=== PATIENT | male | born 1945 | race Caucasian/White ===

== ENCOUNTER → 2019-12-22 13:38 | Outpatient (CLI) | payer MEDICARE, OTHER, SELFPAY ==
--- NOTE | ~2019-12-22 | MR_ITS ---
EXAMINATION: MR lumbar spine wo con DATE: 12/22/2019 14:49 INDICATION: Other spondylosis, lumbar region. TECHNIQUE: Magnetic resonance imaging (MRI) of the lumbar spine was performed without intravenous con trast. Sequences included sagittal T2-weighted FSE, sagittal T2-weighted FS FSE, sagittal T1-weighted FSE, and axial T2-weighted FSE. COMPARISON: Lumbar spine MRI 04/17/2009 FINDINGS: There are chronic bilateral L4 pars defects. There is 15 mm anterolisthesis of L4 on L5. Th ere is interbody fusion at L4-L5. There is 3 mm retrolisthesis of T12 on L1. There is severely decrea sed disc height at T12-L1, mildly decreased disc height at L2-L3, and severely decreased disc height at L5-S1. The distal spinal cord signal intensity is normal. The conus medullaris is at T12. The foll owing disc levels are specifically discussed: T12-L1: The disc is bulging and has an annular fissure. There is mild bilateral facet joint osteoarth ritis. There is mild right and moderate left neural foraminal stenosis. There is mild central canal s tenosis. L1-L2: The disc is bulging and has an annular fissure. There is moderate bilateral facet joint osteoa rthritis. There is mild bilateral neural foraminal stenosis. There is mild central canal stenosis. L2-L3: The disc is bulging with superimposed left subarticular extrusion with 2.2 cm superior extensi on to the suprapedicular level. There is mass effect on the left L2 nerve root. There is severe bilat eral facet joint osteoarthritis. There is moderate bilateral neural foraminal stenosis. There is mode rate central canal stenosis. L3-L4: The disc is bulging. There is moderate bilateral facet joint osteoarthritis. There is mild shahida ateral neural foraminal stenosis. There is mild central canal stenosis. L4-L5: The disc does not extend beyond the endplate margins. There is moderate bilateral facet joint osteoarthritis. There is moderate bilateral neural foraminal stenosis. There is mild central canal st enosis. L5-S1: The disc is bulging and has an annular fissure. There is severe bilateral facet joint osteoart hritis. There is mild bilateral neural foraminal stenosis. There is mild central canal stenosis. IMPRESSION: 1. Severe lumbar spondylosis, worsened from 04/17/2009. Reviewed, dictated and finalized at location A.
== END ==
PROVIDERS: PCP Family Medicine; Visit Provider Physician Assistant
DX: M47.896 Other spondylosis, lumbar region (principal)
CPT/HCPCS: 72148

== ENCOUNTER → 2020-04-20 08:01 | Outpatient (CLI) | payer MEDICARE, OTHER, SELFPAY ==
--- NOTE | ~2020-04-20 | MR_ITS ---
EXAMINATION: MR cervical spine wo con EXAM DATE: 04/20/2020 08:41 INDICATION: Cervical disc disorder with myelopathy. TECHNIQUE: Multi-sequential, multiplanar MR images of the cervical spine were obtained without contra st. Axial T2, axial T2 MERGE sequence. Sagittal T1, T2, T2 fat saturation images also obtained. Th ere is no prior study for comparison. FINDINGS: There is moderate disc disease C5-C7, mild to moderate at C4-5. The vertebral bodies are a ligned in the AP dimension. The spinal cord signal intensity and intrinsic morphology is normal. Cerv icomedullary junction is normal in appearance. There is hemangioma within the T3 vertebral body. Mult inodular goiter. Level by level evaluation: C2-C3: Disc does not extend beyond the endplate margin. Uncovertebral joint arthropathy: Mild bilateral. Facet joint arthropathy: Moderate left, mild right. Neural foraminal stenosis: Mild left. Central canal stenosis: No stenosis. C3-C4: Disc does not extend beyond the endplate margin. Uncovertebral joint arthropathy: Mild to moderate left, mild right. Facet joint arthropathy: Moderate bilateral, left greater than right. Neural foraminal stenosis: Moderate left. Central canal stenosis: No stenosis. C4-C5: There is a mild diffuse disc bulge. Uncovertebral joint arthropathy: Moderate right, mild to moderate left. Facet joint arthropathy: Moderate bilateral. Neural foraminal stenosis: Moderate bilateral. Central canal stenosis: Minimal. C5-C6: There is a mild to moderate diffuse disc bulge asymmetric to the left Uncovertebral joint arthropathy: Severe left, moderate right. Facet joint arthropathy: Mild to moderate bilateral. Neural foraminal stenosis: Moderate to severe left, moderate right. Central canal stenosis: Mild. C6-C7: There is a mild to moderate diffuse disc bulge asymmetric to the left Uncovertebral joint arthropathy: Severe left, moderate to severe right. Facet joint arthropathy: Mild bilateral. Neural foraminal stenosis: Moderate left, mild right. Central canal stenosis: Mild. C7-T1: There is a mild diffuse disc bulge. Uncovertebral joint arthropathy: Moderate bilateral. Facet joint arthropathy: Mild to moderate bilateral, left-sided ligamentum flavum hypertrophy. Neural foraminal stenosis: Mild to moderate left, mild right. Central canal stenosis: Minimal. IMPRESSION: 1. Incidental multinodular goiter. 2. Advanced spondylosis C5-6 and C6-7. 3. Normal cord signal. Reviewed, dictated and finalized at location B. [employer]
== END ==
PROVIDERS: PCP Family Medicine; Visit Provider Nurse Practitioner Gerontology
DX: M50.020 Cervical disc disorder with myelopathy, mid-cervical region, unspecified level (principal); E04.2 Nontoxic multinodular goiter; M47.892 Other spondylosis, cervical region
CPT/HCPCS: 72141

== ENCOUNTER 2020-06-25 09:56 | Outpatient (RCR) | payer MEDICARE, OTHER, SELFPAY ==
--- NOTE | 2020-06-25 11:32 | PTOPEVAL ---
Thank you for referring Mike Valencia to [facility].? The patient is scheduled to be seen for therapy? ____x/week for ___ weeks. Please review, sign, date and return this plan of care DONNIE. I agree with and certify that the following plan of care is medically necessary. Referring Physician Date Admitting Provider: Attending Provider: Nehemiah Jin MD Referring Provider: *PT Outpatient Evaluation Start: 06/25/20 09:59 Freq: Status: Active Protocol: Document 06/25/20 10:00 ACR (Rec: 06/25/20 11:31 ACR [id number]) Therapy Assessment Status Assessment Status Assessment Status Evaluation Evaluation Information Problem Diagnosis L2-3 3-4 laminectomy with decompression Onset 05/28/20 Subjective Information Patient states that before Query Text:As Reported By Patient/ surgery his back was so bad it Family was flaring up his sciatic pain. He states that his pain was bad for a year, but the year before was the worst. Patient states that walking is the most difficult. Patient states that in the past year he has fallen twice, but has been able to get back up. He states his balance is off as well. Patient states that he has had foot drop on the R for over 15 years. Patient states that he sees the surgeon on . Patient understands BLT precautions. 21.25% functionality on LEFS Prior Level of Function Activity Level (Last 3 Months) Occupation retired Hand Dominance Right Activity of Daily Living Ability Independent Indoor/Home Mobility Independent Community Mobility Independent Stairs Ability Independent Functional Cognition (Planning, Shopping Independent , Taking Medications) Cooking Yes Cleaning Yes Laundry Yes Shopping Yes Driving Yes Pain Assessment Timing of Pain Assessment Timing of Pain Assessment Assessment Pain Scale Pain Scale Used Numeric (1 - 10) Self Report Pain Assessment Lower Back Reported Pain Level 1 Pain Description Aching,Dull Greatest Pain Intensity 5 Pain Score Pain Score 1: Self Report Interventio
--- NOTE | 2020-08-02 10:05 | PTOPEVAL ---
Thank you for referring Mike Valencia to [facility].? The patient is scheduled to be seen for therapy? ____x/week for ___ weeks. Please review, sign, date and return this plan of care DONNIE. I agree with and certify that the following plan of care is medically necessary. Referring Physician Date Admitting Provider: Attending Provider: Nehemiah Jin MD Referring Provider: *PT Outpatient Evaluation Start: 06/25/20 09:59 Freq: Status: Active Protocol: Document 08/02/20 08:55 ACR (Rec: 08/02/20 10:03 ACR [id number]) Therapy Assessment Status Assessment Status Assessment Status Progress Evaluation Information Problem Diagnosis L 2-3 3-4 laminectomy with decompression Onset 05/28/20 Subjective Information Patient states that since Query Text:As Reported By Patient/ beginning therapy his walking Family is a lot easier especially with the new AFO. The patient states that he still has balance deficits, but it is better than what it was. The patient states he feels therapy has really helped him and would like to continue therapy to continue with his balance. Pain Assessment Timing of Pain Assessment Timing of Pain Assessment Assessment Pain Scale Pain Scale Used Numeric (1 - 10) Self Report Pain Assessment Lower Back Reported Pain Level 0 Greatest Pain Intensity 4 Additional Pain Comments Pain gets to its worst with ambulation Pain Score Pain Score 0: Self Report Interventions Used Interventions Used By Clinicians Activity or ADL's,Exercise Lower Extremity Muscle Strength Testing Hip Strength Right Hip Flexion Strength 5 Normal Hip Abduction Strength 4 Good Left Hip Flexion Strength 4+ Good + Hip Abduction Strength 4 Good Knee Strength Bilateral Knee Flexion Strength 5 Normal Knee Extension Strength 4+ Good + Balance Assessment Tinetti Balance Assessment Sitting Balance Steady, safe Ability to Arise Able, w/o using arms Attempts to Arise Arises on 1st attempt Immediate Standing Balance Steady w/o support Standing Balance Steady, wide stance Nudged Response Begins to fall Standing with Eyes Closed Steady Step Pattern Turning 360 Degrees Discontinuous steps Stability Turning 360 Degrees Unsteady, grabs/staggers Sitting Down
== END 2020-08-31 11:03 | disposition home or self-care (01) ==
LOC: CHSPT 09:56
PROVIDERS: PCP Family Medicine; Visit Provider Family Medicine
DX: M21.379 Foot drop, unspecified foot (principal); Z98.890 Other specified postprocedural states
CPT/HCPCS: 97110; 97161; 97530

== ENCOUNTER → 2021-05-20 13:27 | Outpatient (CLI) | payer MEDICARE, OTHER, SELFPAY ==
--- NOTE | ~2021-05-20 | XR_ITS ---
XR hip RT min 2V DATE: 05/20/2021 13:55 INDICATION: Right hip pain TECHNIQUE: AP and lateral views COMPARISON: 03/23/2009 right hip FINDINGS: No fracture or dislocation, avascular necrosis or bone destruction is evident. Right hip monalisa int space appears relatively preserved. The pubic symphysis and sacroiliac joints are intact. IMPRESSION: Reviewed, dictated and finalized at location A. IMPRESSION:
== END ==
PROVIDERS: PCP Family Medicine; Visit Provider Family Medicine
DX: M25.551 Pain in right hip (principal)
CPT/HCPCS: 73502

== ENCOUNTER 2021-08-27 09:15 | Emergency (ER) | payer MEDICARE, OTHER, SELFPAY ==
[2021-08-27] VITALS (11 sets, daily range): BP systolic 144–160; BP diastolic 75–100; PULSE 72–85; RESP 13–18; TEMP 36.3–36.5; O2SAT 97–99
--- NOTE | ~2021-08-27 | CT_ITS ---
EXAMINATION: CT brain wo con INDICATION: Head injury COMPARISON: None TECHNIQUE: Standard unenhanced head CT. The dose-length product (DLP) was 605.33 mGy-cm. The mA was a djusted according to patient size. Iterative reconstruction technique was employed. FINDINGS: There is a small amount of subarachnoid hemorrhage in the medial left frontal lobe posterio rly. No evidence of mass lesion. No evidence of acute infarction. There are is an area of prior infar ction inferiorly in the anterior aspect of the left frontal lobe. There is mild periventricular and s ubcortical hypodensity probably related to small vessel ischemic disease. There is mild prominence of the sulci and ventricles related to cerebral atrophy. Intracranial calcified cerebral atherosclerosi s is noted. There are no extra-axial collections. There is no mass effect or midline shift. The orbit s are unremarkable. There is soft tissue swelling of the frontal scalp. There is mild mucosal thicken ing of the paranasal sinuses. IMPRESSION: 1. Small amount of acute subarachnoid hemorrhage in the left frontal lobe. 2. Prior left frontal lobe infarct. 3. Age related findings. These findings were discussed with Josias Francisco APRN in the Emergency Department at 0955 hours on 08/27/2021. Reviewed, dictated and finalized at location B. IMPRESSION: 1. Small amount of acute subarachnoid hemorrhage in the left frontal lobe. 2. Prior left frontal lobe infarct. 3. Age related findings. These findings were discussed with Josias Francisco APRN in the Emergency Depar tment at 0955 hours on 08/27/2021.
--- NOTE | ~2021-08-27 | CT_ITS ---
EXAMINATION: CT facial & cervical spine wo DATE: 08/27/2021 09:46 INDICATION: Head injury TECHNIQUE: Computed tomography (CT) of the maxillofacial region and cervical spine was performed with out intravenous contrast. The dose-length product (DLP) was 478.12 mGy-cm. Automated exposure control and iterative reconstruction technique were employed. COMPARISON: None FINDINGS: MAXILLOFACIAL CT: There is left frontal scalp and right facial soft tissue swelling. There is a fracture of the right i nferior orbital wall. No muscular entrapment is identified. The globes are intact. There is moderate mucosal thickening of the ethmoidal air cells and right maxillary sinus. CERVICAL SPINE CT: There is no fracture. Bone alignment is normal. There is severe loss of intervertebral disc space hei ght at C6-7 and moderate loss of disc space height at C5-6. The odontoid is intact. Small degenerativ e osteophytes project from the anterior endplates of multiple vertebral bodies. There is moderate to severe a multinodular goiter is noted. Multilevel facet and uncovertebral joint osteoarthritis. IMPRESSION: 1. Acute fracture of the right inferior orbital wall. No muscular entrapment identified. 2. Severe cervical spondylosis without acute findings. 3. Multinodular goiter. Consider nonemergent thyroid ultrasound for risk stratification if not previo usly performed. Reviewed, dictated and finalized at location B. IMPRESSION: 1. Acute fracture of the right inferior orbital wall. No muscular entrapment id entified. 2. Severe cervical spondylosis without acute findings. 3. Multinodular goiter. Consider nonemergent thyroid ultrasound for risk strati fication if not previously performed.
--- NOTE | 2021-08-27 09:29 | ED.HEATRA ---
HPI - Head Injury General Chief complaint: Head Injury Stated complaint: fall, multiple skin tears Time Seen by Provider: 08/27/21 09:22 History of Present Illness HPI Narrative: 75-year-old male presents to the emergency room for evaluation of multiple injuries sustained from a ground-level fall. Patient states that he was at the [facility] when he tripped, losing his balance. Patient states that he suffered skin tears to his right hand, left elbow, and right side of face. Patient denies any LOC or altered mental status. Patient states that he is on Coumadin. Related Data Home Medications Medication Instructions Recorded Confirmed warfarin 1 mg tablet 1 mg PO DAILY 01/12/19 05/20/21 Allergies Allergy/AdvReac Type Severity Reaction Status Date / Time No Known Allergies Allergy Verified 06/26/21 09:56 Review of Systems Review of Systems: CONSTITUTIONAL: Denies fever, chills, or sweats. EYES: Denies visual changes, redness, or discharge. ENT: Denies rhinorrhea, congestion, sore throat, or otalgia. CARDIOVASCULAR: Denies chest pain, palpitations, or edema. RESPIRATORY: Denies cough or dyspnea. GASTROINTESTINAL: Denies abdominal pain, nausea, vomiting, or diarrhea. GENITOURINARY: Denies dysuria or hematuria. SKIN: Reports abrasions to the left elbow, right hand, right side of face MUSCULOSKELETAL: Denies back pain, joint pain, or myalgia. NEUROLOGIC: Denies headache, numbness, dizziness, or weakness. PSYCHIATRIC: Denies anxiety or depression. [facility] Past Medical History Medical History History of hearing problem Reactive airway disease Risk for falls Surgical History Surgical History Status post lumbar spine surgery for decompression of spinal cord Family History Family History Mother Hypertension Family history of cardiovascular disease Family history of coronary artery disease Father Hypertension, Onset Age: 67 Family history of cardiovascular disease, Onset Age: 67 Acute myocardial infarction, Onset Age: 67 Family history of coronary artery disease, Onset Age: 67 Other Asthma Family history of allergic disorder Family history of elevated blood lipids Social History Social History Smoking end date: 02/23/91 Alcohol intake: never Exam Narrative: GENERAL: Well-appearing, well-nourished, no physical limitations, and in no acute distress. HEAD: Normocephalic, swelling and tenderness noted to the right orbital wall, 1 cm and 1.5 cm lacerations inferior to right eye, EYES: Conjunctivae normal, PERRLA and EOMI. ENT: External nose normal, Nares clear, no rhinorrhea or epistaxis. Mucous membranes moist. Oropharynx without tonsillar hypertrophy exudate or other lesions. External ears normal, bilateral TMs normal bilaterally NECK: Supple. No midline tenderness, no step-offs, full range of motion CHEST: Clear to auscultation. No respiratory distress. No wheezes rales or rhonchi. No tenderness. HEART: Irregular rate and rhythm. No murmur heard. Normal peripheral pulses. EXTREMITIES: Normal range of motion. No edema. No clubbing or cyanosis SKIN: Skin tear noted to left elbow, and multiple to right hand; lacerations noted to middle of forehead and below right eye NEURO: No focal deficits. Alert and oriented x3. MAEW. CN's II-XI intact bilaterally, normal gait PSYCH: Cooperative. Normal mood and affect. Course Vital Signs Vital signs: Vital Signs Temperature 36.3 C L 08/27/21 09:25 Pulse Rate 77 08/27/21 09:25 Respiratory Rate 18 08/27/21 09:25 Blood Pressure 160/99 H 08/27/21 09:25 Pulse Oximetry 99 08/27/21 09:25 Oxygen Delivery Room Air 08/27/21 09:25 Temperature 36.3 C L 08/27/21 09:25 Pulse Rate 77 08/27/21 09:25 Respi
[2021-08-27 10:16] LABS: Basophils Absolute Auto 0.1 K/mm3 (0.0-0.1); Eosinophils Absolute Auto 0.2 K/mm3 (0-0.3); Eosinophils Percent Auto 1.8 % (0-4.4); Hematocrit 45.7 % (42.0-52.0); Hemoglobin 15.2 g/dL (14.0-18.0); Immature Granulocyte Percent A 1.2 % (0-0.5); Lymphocytes Absolute Auto 1.01 K/mm3 (0.9-3.2); Lymphocytes Percent Auto 12.3 % (18.3-44.2); Mean Corpuscular HGB Conc 33.3 g/dl (32-36); Mean Corpuscular Hemoglobin 32.2 pg (26-34); Mean Corpuscular Volume 96.8 fl (80-100); Mean Platelet Volume 10.6 fl (7.4-10.4); Monocytes Absolute Auto 0.8 K/mm3 (0.1-0.6); Monocytes Percent Auto 9.5 % (2.6-8.5); Neutrophils Absolute Auto 6.1 K/mm3 (1.3-6.7); Neutrophils Percent Auto 74.2 % (45.5-73.1); Platelet Count Result 200 k/mm3 (150-375); Red Blood Count 4.72 M/mm3 (4.6-6.20); White Blood Count 8.2 K/mm3 (4.5-10.0)
[2021-08-27 10:30] LABS: INR 2.8; Partial Thromboplastin Time 35.6 SECONDS (22.3-36.8); Prothrombin Time 28.6 Seconds (11.1-14.7)
[2021-08-27 10:54] LABS: Alanine Aminotransferase 20 U/L (6-50); Albumin Level 4.2 g/dL (3.5-5.1); Alkaline Phosphatase 68 U/L (38-126); Anion Gap 6 mmol/L (8-16); Aspartate Amino Transferase 23 U/L (17-59); Bilirubin,Total 0.7 mg/dL (0.2-1.3); Blood Urea Nitrogen 22 mg/dL (9-20); Calcium 8.8 mg/dL (8.4-10.2); Carbon Dioxide 24 mmol/L (22-30); Chloride 105 mmol/L (98-107); Estimated CRCL calculation 73 ml/min; Estimated Glomerular Filt Rate > 60; Glucose 137 mg/dL (65-110); Potassium 4.4 mmol/L (3.4-5.0); Sodium 135 mmol/L (137-145)
[2021-08-27] MEDS: HUMAN PROTHROMBIN COMPLEX(PCC) 500 UNITS, HUMAN PROTHROMBIN COMPLEX(PCC) 2,000 UNITS in... 504 UNITS IV CONT (11:05)
--- NOTE | 2021-08-27 11:05 | PC.NURSE ---
Per Joyce at pharmacy, infuse Kcentra at a rate of 504ml/HR
== END 2021-08-27 11:08 | disposition short-term general hospital (02) ==
PROVIDERS: Emergency Provider Nurse Practitioner Family; PCP Family Medicine
DX: S06.6X0A Traumatic subarachnoid hemorrhage without loss of consciousness, initial encounter (principal); S02.31XA Fracture of orbital floor, right side, initial encounter for closed fracture; S01.81XA Laceration without foreign body of other part of head, initial encounter; S61.411A Laceration without foreign body of right hand, initial encounter; S51.012A Laceration without foreign body of left elbow, initial encounter; J45.909 Unspecified asthma, uncomplicated; Z87.891 Personal history of nicotine dependence; Z79.01 Long term (current) use of anticoagulants; W01.0XXA Fall on same level from slipping, tripping and stumbling without subsequent striking against object, initial encounter
CPT/HCPCS: 12002; 12013; 36415; 70450; 70486; 72125; 80053; 85025; 85610; 85730; 96365; 99285; J7168

== ENCOUNTER 2021-09-09 10:00 | Outpatient (RCR) | payer MEDICARE, OTHER, SELFPAY ==
--- NOTE | 2021-09-05 16:59 | PTOPEVAL ---
Thank you for referring Mike Valencia to [facility].? The patient is scheduled to be seen for therapy? __2__x/week for 8 visits. Please review, sign, date and return this plan of care DONNIE. I agree with and certify that the following plan of care is medically necessary. Referring Physician Date Admitting Provider: Attending Provider: Fabiana Franco Referring Provider: *PT Outpatient Evaluation Start: 09/05/21 16:07 Freq: Status: Active Protocol: Document 09/05/21 16:08 JONO (Rec: 09/05/21 16:56 JONO [email or web address]) Therapy Assessment Status Assessment Status Assessment Status Evaluation Evaluation Information Problem Diagnosis CVA Onset 08/27/21 Subjective Information Pt. reports that he was at the Query Text:As Reported By Patient/ [employer] while walking out the Family door. He reports that he broke his orbital bone and had a brain bleed. He was in [place] for 2 days and was discharged to home. As soon as he returned home he experienced a stroke. He could not recieved anti-clot agent due to prior brain bleed and opted to let the clot dissolve. He reports that he has been using a cane since he underwent back surgery in May last year. He reports that he still notices a little unsteadiness and recalls some slight right sided weakness in the leg. He reports that his goal for therapy is to improve his walking and strength. Prior Level of Function Activity Level (Last 3 Months) Occupation retired Hand Dominance Right Activity of Daily Living Ability Independent Indoor/Home Mobility Independent Community Mobility Independent Stairs Ability Independent Functional Cognition (Planning, Shopping Independent , Taking Medications) Cooking Yes Cleaning Yes Laundry Yes Shopping Yes Driving Yes Comments Additional Prior Level of Function Pt. is not currently driving. Comments Pain Assessment Timing of Pain Assessment Timing of Pain Assessment Pre-Treatment S
--- NOTE | 2021-09-09 12:04 | STOPEVAL ---
Thank you for referring Mike Valencia to [facility] Patient was evaluated for cognitive-communication deficits and presents near PLOF at this time. ST is not warranted at this time. Referring Physician Date Admitting Provider: Attending Provider: Fabiana Franco Referring Provider: * Outpatient Evaluation Start: 09/09/21 11:35 Freq: Status: Active Protocol: Document 09/09/21 10:00 TRISTANB (Rec: 09/09/21 12:02 PAUL [id number]) Therapy Assessment Status Assessment Status Assessment Status Evaluation Outpatient Past Medical History Past Medical History Source of Past Medical History Patient,Family/Significant Other Neurological History Hx Cerebrovascular Accident (CVA) Yes: 08-29-21 Hx Other Neurological Disorders Yes: fall 08-27-21 with brain bleed Cardiovascular History Hx Cardiac Disorders No Significant History Respiratory History Hx Respiratory Disorders No Significant History Gastrointestinal History Hx Gastrointestinal Disorders No Significant History Genitourinary History Hx Genitourinary Disorders No Significant History Musculoskeletal History Hx Spinal Surgery Yes: back surgery 05/2020 L4 and L5 laminectomy HEENT History Hx HEENT Disorders No Significant History Integumentary History Hx Skin Disorders No Significant History Reproductive History Hx Reproductive Disorders No Significant History Psychosocial History Hx Psychiatric Disorders No Significant History Pain History History of Any Previous or Ongoing No Significant History Instance of Pain Anesthesia History Hx Anesthesia Reactions No Significant History Evaluation Information Problem Diagnosis CVA Onset 08/27/21 Subjective Information Pt. reports that he was at the Query Text:As Reported By Patient/ [employer] while walking out the Family door. He reports that he broke his orbital bone and had a brain bleed. He was in [place] for 2 days and was discharged to home. As soon as he returned home he experienced a stroke. He could not received anti-clot agent due to prior brain bleed and opted to let the clot dissolve. Patient and reported that the patient initially was unable to talk but that has gradually came back over the course of two
== END 2021-09-30 13:23 | disposition home or self-care (01) ==
LOC: CHSST 10:00
DX: R26.9 Unspecified abnormalities of gait and mobility (principal); I69.320 Aphasia following cerebral infarction
CPT/HCPCS: 92523; 97110; 97112; 97161; 97530

== ENCOUNTER 2022-12-22 12:45 | Outpatient (NON) | payer MEDICARE, OTHER, SELFPAY | END 2022-12-22 12:46 | disposition home or self-care (01) | LOC: ANHLAB 12-24 12:47 | PROVIDERS: PCP Family Medicine; Visit Provider Surgery Plastic and Reconstructive Surgery | DX: C43.9 Malignant melanoma of skin, unspecified (principal) | CPT/HCPCS: 88305 ==

== ENCOUNTER → 2023-04-27 12:10 | Outpatient (CLI) | payer MEDICARE, OTHER, SELFPAY ==
--- NOTE | ~2023-04-27 | XR_ITS ---
EXAMINATION: XR shoulder RT min 2V INDICATION: Right shoulder pain TECHNIQUE: Four views of the right shoulder are submitted. COMPARISON: None FINDINGS: Normal alignment. No fracture. There is moderate osteoarthritis of the acromioclavicular monalisa int and mild osteoarthritis of the glenohumeral joint. Soft tissues are unremarkable. IMPRESSION: 1. No acute osseous abnormality. Reviewed, dictated and finalized at location B. BLENDER
--- NOTE | ~2023-04-27 | XR_ITS ---
EXAMINATION: XR shoulder LT min 2V INDICATION: Left shoulder pain TECHNIQUE: Four views of the left shoulder are submitted. COMPARISON: None FINDINGS: Normal alignment. No fracture. 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 Soft tissues are unremarkable. IMPRESSION: 1. No acute osseous abnormality. Reviewed, dictated and finalized at location B. SWAMPER
== END ==
PROVIDERS: PCP Family Medicine; Visit Provider Nurse Practitioner Family
DX: M25.511 Pain in right shoulder (principal); M25.512 Pain in left shoulder
CPT/HCPCS: 73030

== ENCOUNTER 2023-05-01 12:44 | Outpatient (CLI) | payer MEDICARE, OTHER, SELFPAY ==
--- NOTE | ~2023-05-01 | MR_ITS ---
EXAMINATION: MR cervical spine wo con DATE: 05/01/2023 13:31 INDICATION: Cervical spondylosis without myelopathy or radiculopathy. Neck pain. Bilateral shoulder p ain. TECHNIQUE: Magnetic resonance imaging (MRI) of the cervical spine was performed without intravenous c ontrast. COMPARISON: Cervical spine MRI 04/20/2020 FINDINGS: There is 4 degrees dextrocurvature of cervical spine. There is 2 mm retrolisthesis of C6 on C7. Vertebral body heights are normal. There is moderately decreased disc height at C4-C5 and severe ly decreased disc height at C5-C6 and C6-C7. The spinal cord signal intensity is normal. Partially vi sualized is a goiter. The following disc levels are specifically discussed: C2-C3: The disc does not extend beyond the endplate margin. There is no uncovertebral joint osteoarth ritis. There is severe bilateral facet joint osteoarthritis. There is mild left neural foraminal sten osis. There is no central canal stenosis. C3-C4: There is a left central extrusion. There is severe left uncovertebral joint osteoarthritis. Th ere is mild right and severe left facet joint osteoarthritis. There is moderate left neural foraminal stenosis. There is mild central canal stenosis. C4-C5: The disc is bulging. There is severe bilateral uncovertebral joint osteoarthritis. There is se percy bilateral facet joint osteoarthritis. There is severe right and moderate left neural foraminal s tenosis. There is mild central canal stenosis. C5-C6: The disc is bulging. There is severe bilateral uncovertebral joint osteoarthritis. There is se percy right and moderate left facet joint osteoarthritis. There is moderate bilateral neural foraminal stenosis. There is mild central canal stenosis with ventral indentation of the spinal cord. C6-C7: The disc is bulging. There is severe bilateral uncovertebral joint osteoarthritis. There is mo derate bilateral facet joint osteoarthritis. There is mild bilateral neural foraminal stenosis. There is mild central canal stenosis with ventral indentation of the spinal cord. C7-T1: The disc does not extend beyond the endplate margin. There is mild bilateral uncovertebral amie nt osteoarthritis. There is severe bilateral facet joint osteoarthritis. There is mild bilateral neur al foraminal stenosis. There is no central canal stenosis. IMPRESSION: 1. Severe cervical spondylosis, mildly worsened from 04/20/20. Reviewed, dictated and finalized at location E. [employer]
== END 2023-05-01 12:45 ==
LOC: GOSHIMG 12:46
PROVIDERS: PCP Family Medicine; Visit Provider Nurse Practitioner Family
DX: M43.02 Spondylolysis, cervical region (principal); M47.812 Spondylosis without myelopathy or radiculopathy, cervical region
CPT/HCPCS: 72141

== ENCOUNTER 2023-08-17 13:20 | Outpatient (CLI) | payer MEDICARE, OTHER, SELFPAY ==
--- NOTE | ~2023-08-17 | MR_ITS ---
EXAMINATION: MR cervical spine wo con DATE: 08/17/2023 14:07 INDICATION: Cervical disc disorder with myelopathy. TECHNIQUE: Magnetic resonance imaging (MRI) of the cervical spine was performed without intravenous c ontrast. COMPARISON: Cervical spine MRI 05/01/2023 FINDINGS: There is mild kyphosis of lower cervical spine. Vertebral body heights are normal. There is mildly decreased disc height at C4-C5, severely decreased disc height at C5-C6 and C6-C7, and mildly decreased disc height at C7-T1. The spinal cord signal intensity is normal. The following disc level s are specifically discussed: C2-C3: There is a central protrusion. There is no uncovertebral joint osteoarthritis. There is severe bilateral facet joint osteoarthritis. There is mild left neural foraminal stenosis. There is no cent ral canal stenosis. C3-C4: There is a central extrusion. There is mild right and severe left uncovertebral joint osteoart hritis. There is moderate right and severe left facet joint osteoarthritis. There is mild right and m oderate left neural foraminal stenosis. There is mild central canal stenosis. C4-C5: The disc is bulging. There is severe bilateral uncovertebral joint osteoarthritis. There is se percy bilateral facet joint osteoarthritis. There is severe right and moderate left neural foraminal s tenosis. There is mild central canal stenosis. C5-C6: The disc is bulging. There is severe bilateral uncovertebral joint osteoarthritis. There is se percy right and moderate left facet joint osteoarthritis. There is moderate bilateral neural foraminal stenosis. There is mild central canal stenosis with ventral indentation of the spinal cord. C6-C7: The disc is bulging. There is severe bilateral uncovertebral joint osteoarthritis. There is mo derate bilateral facet joint osteoarthritis. There is mild bilateral neural foraminal stenosis. There is mild central canal stenosis with ventral indentation of the spinal cord. C7-T1: The disc is bulging. There is mild bilateral uncovertebral joint osteoarthritis. There is demetris re bilateral facet joint osteoarthritis. There is mild bilateral neural foraminal stenosis. There is no central canal stenosis. IMPRESSION: 1. Severe cervical spondylosis, stable from 05/01/2023. Reviewed, dictated and finalized at location A.
== END 2023-08-17 13:21 ==
LOC: GOSHIMG 13:21
PROVIDERS: PCP Family Medicine; Visit Provider Neurological Surgery
DX: M50.020 Cervical disc disorder with myelopathy, mid-cervical region, unspecified level (principal); M47.892 Other spondylosis, cervical region
CPT/HCPCS: 72141

== ENCOUNTER 2023-08-20 13:38 | Outpatient (CLI) | payer MEDICARE, OTHER, SELFPAY ==
--- NOTE | ~2023-08-20 | US_ITS ---
EXAMINATION: US thyroid DATE: 08/20/2023 13:53 INDICATION: Thyroid abnormality on prior CT TECHNIQUE: Multiple ultrasound images of the thyroid were obtained. COMPARISON: CT dated 08/27/2021 FINDINGS: The right thyroid lobe measures 6.7 x 3.2 x 3.7 cm. The left thyroid lobe measures 5.7 x 2.9 x 3.4 c m. The thyroid isthmus measures 1.4 cm in thickness. There are 4 separate wider than tall solid or ne odell completely solid isoechoic thyroid nodules with smooth margins and without echogenic foci (TI-RA DS 3, mildly suspicious , FNA if >=2.5 cm, annual followup is >=1.5 cm). These measure 2.8 cm and 3.0 cm in the left thyroid lobe, 3.6 cm at the thyroid isthmus and 3.2 cm at the right thyroid lobe. IMPRESSION: 1. Multinodular goiter with 4 TI RADS 3 nodules with identical imaging features scattered throughout the thyroid. These measure between 2.8 cm and 3.6 cm, all meeting criteria for biopsy. Would recommen d ultrasound-guided biopsy of the largest 3.6 cm nodule at the isthmus. Reviewed, dictated and finalized at location B. IMPRESSION: 1. Multinodular goiter with 4 TI RADS 3 nodules with identical imaging features scattered throughout the thyroid. These measure between 2.8 cm and 3.6 cm, all meeting criteria for biopsy. Would recommend ultrasound-guided biopsy of the l argest 3.6 cm nodule at the isthmus.
== END 2023-08-20 13:39 ==
LOC: GOSHIMG 13:39
PROVIDERS: PCP Family Medicine; Visit Provider Family Medicine
DX: E04.2 Nontoxic multinodular goiter (principal)
CPT/HCPCS: 76536

== ENCOUNTER 2024-03-23 10:51 | Outpatient (RCR) | payer MEDICARE, OTHER, SELFPAY ==
--- NOTE | 2024-03-23 11:58 | OPREHPOC ---
Outpatient Therapy Plan of Care This is a Multidisciplinary Plan of Care that may contain components documented by all disciplines (PT, OT, and ST.) PT Problem 1 PT Problem #1 Knowledge Deficit PT Goal 1 Goal / Goal Update 1. independent and compliant with HEP Target Visit 6 PT Problem 2 PT Problem #2 Impaired Strength PT Goal 1 Goal / Goal Update 1. patient to achieve 3/5 or better bilat hip abd strength Target Visit 12 PT Problem 3 PT Problem #3 Impaired Balance PT Goal 1 Goal / Goal Update 1. TUG to be completed in under 20 seconds 2. 5x sit to stand to be completed in under 20 seconds 3. tinetti to display moderate fall risk or less. Target Visit 12 PT Problem 4 PT Problem #4 Impaired Functional Mobility PT Goal 1 Goal / Goal Update 1. patient to transition safely back to cane for ambulation 2. no falls in the last 4 weeks of PT 3. patient to complete a 6 minute walk test without rest Target Visit 12
--- NOTE | 2024-03-23 11:58 | PTOPEVAL1 ---
Assessment and note entered by JT File, PT Evaluation Information Assessment Status Evaluation ICD-10 Condition Codes (PT) Repeated falls R29.6,Difficulty Walking R26.2, Abnormalities of gait and mobility R26.9,Weakness R53.1 Other ICD-10 Condition Codes ( Z91.82, G81.92, S06.5X9A PT) Onset 03/17/24 Subjective Information patient reports his walking is getting worse. he reports it has been gradually getting worse over the past year. he reports he has had a couple falls at least in the last year. in 2019 he had back surgery. he still has DDD of the lumbar spine . he is on a blood thinner and fell and caused a subdural hemorrhage. he is a little slower since this incident. he and his are hoping to keep Mike out of a WC, and keep him walking as long as possible. he does have foot drop on the R ankle, and wears a brace to prevent catching his toe with walking. Reported Pain Level Pain Score 0: Self Report Assessment PT Clinical Summary mr. peterson is a 78 yo man who presents to skilled PT services for evaluation and treatment of falls, weakness, and abnormal gait mechanics. he presents with R sided weakness from lumbar spine DDD, high fall risk per the tinetti/tug/5x sit to stand, and unsafe gait mechanics using a walker. he would benefit from continued skilled PT to address his objective/functional deficits and improve his strength, stability, and safety to improve his quality of life and functional activity performance. Plan of Care Interventions Gait Training,Neuro Re-education,Patient/Caregiver Education,Therapeutic Activities,Therapeutic Exercise PT Services Indicated Yes Treatment Frequency and 3x weekly for 12 visits Duration These treatments will address the objective and functional deficits as defined above. The patient will be advanced safely and appropriately in order for the patient to progress towards his/her prior level of function. Additional exercises will be introduced and as well as a comprehensive home exercise program upon discharge, if needed, ?to ensure carryover of functional gains achieved in the clinic. This treatment plan has been reviewed and agreement upon by the patient.
--- NOTE | 2024-04-08 17:19 | PCPTNOTE ---
Patient called & cancelled scheduled appointment this date due to illness.
--- NOTE | 2024-04-22 10:52 | OPREHPOC ---
Outpatient Therapy Plan of Care This is a Multidisciplinary Plan of Care that may contain components documented by all disciplines (PT, OT, and ST.) PT Problem 1 PT Problem #1 Knowledge Deficit PT Goal 1 Goal / Goal Update 1. independent and compliant with HEP Target Visit 6 Progress Not Met PT Goal 2 Goal / Goal Update Continue to educate to improve adherence to HEP. Target Visit 20 PT Problem 2 PT Problem #2 Impaired Strength PT Goal 1 Goal / Goal Update 1. patient to achieve 3/5 or better bilat hip abd strength Target Visit 12 Progress Not Met PT Goal 2 Goal / Goal Update Continue Target Visit 20 PT Problem 3 PT Problem #3 Impaired Balance PT Goal 1 Goal / Goal Update 1. TUG to be completed in under 20 seconds - Not met 2. 5x sit to stand to be completed in under 20 seconds - Not met 3. tinetti to display moderate fall risk or less. - Not met Target Visit 12 Progress Not Met PT Goal 2 Goal / Goal Update Continue Target Visit 20 PT Problem 4 PT Problem #4 Impaired Functional Mobility PT Goal 1 Goal / Goal Update 1. patient to transition safely back to cane for ambulation -Not met 2. no falls in the last 4 weeks of PT - Met 3. patient to complete a 6 minute walk test without rest - Not met Target Visit 12 Progress Partially Met PT Goal 2 Goal / Goal Update Continue Target Visit 20
--- NOTE | 2024-04-22 10:52 | PTOPPROG ---
Assessment and note entered by Edie Zaragoza, PT Evaluation Information Assessment Status Progress ICD-10 Condition Codes (PT) Repeated falls R29.6,Difficulty Walking R26.2, Abnormalities of gait and mobility R26.9,Weakness R53.1 Other ICD-10 Condition Codes ( Z91.82, G81.92, S06.5X9A PT) Onset 03/17/24 Subjective Information Mr. Valencia reports feeling relatively unchanged since starting therapy. He feels like his leg strength is still about the same but he has avoided falls for the last 4 weeks since starting PT. He continues to use his walker in the home and cane outside the home. He states he uses his cane because he feels embarrassed to use the walker out of the home. When he goes to [employer] [place] [employer] he does okay with walking as long as he has a cart. He is still interested in continuing therapy to try and make more progress. Assessment PT Clinical Summary Mr. Valencia has made some progress in lower extremity strength and functional mobility following 10 skilled physical therapy visits. He continues to use his walker inside the home and the cane outside of the home. He can continue to benefit from skilled PT intervention to improve LE strength, balance, and endurance. Plan of Care Interventions Electrical Stimulation,Gait Training,Hot Pack/Cold Pack,Manual Therapy,Neuro Re-education,Patient/ Caregiver Education,Therapeutic Activities, Therapeutic Exercise,Self-Care/Home Management PT Services Indicated Yes Treatment Frequency and 2x/week for 8 additional visits Duration These treatments will address the objective and functional deficits as defined above. The patient will be advanced safely and appropriately in order for the patient to progress towards his/her prior level of function. Additional exercises will be introduced and as well as a comprehensive home exercise program upon discharge, if needed, ?to ensure carryover of functional gains achieved in the clinic. This treatment plan has been reviewed and agreement upon by the patient.
--- NOTE | 2024-05-06 11:20 | PCPTNOTE ---
Pt reports he is not going to make it today.
--- NOTE | 2024-05-10 17:34 | PCPTNOTE ---
Patient called & cancelled scheduled appointment this date due to having a recent fall.
--- NOTE | 2024-05-25 15:17 | OPREHPOC ---
Outpatient Therapy Plan of Care This is a Multidisciplinary Plan of Care that may contain components documented by all disciplines (PT, OT, and ST.) PT Problem 1 PT Problem #1 Knowledge Deficit PT Goal 1 Goal / Goal Update 1. independent and compliant with HEP Target Visit 6 Progress Not Met PT Goal 2 Goal / Goal Update Continue to educate to improve adherence to HEP. Target Visit 20 Progress Met PT Problem 2 PT Problem #2 Impaired Strength PT Goal 1 Goal / Goal Update 1. patient to achieve 3/5 or better bilat hip abd strength Target Visit 12 Progress Met PT Goal 2 Goal / Goal Update Continue Target Visit 20 PT Problem 3 PT Problem #3 Impaired Balance PT Goal 1 Goal / Goal Update 1. TUG to be completed in under 20 seconds - Not met 2. 5x sit to stand to be completed in under 20 seconds - Not met 3. tinetti to display moderate fall risk or less. - Not met Target Visit 26 Progress Not Met PT Goal 2 Goal / Goal Update Continue Target Visit 20 PT Problem 4 PT Problem #4 Impaired Functional Mobility PT Goal 1 Goal / Goal Update 1. patient to transition safely back to cane for ambulation -Not met 2. no falls in the last 4 weeks of PT -Previously met, but had a fall 2 weeks ago 3. patient to complete a 6 minute walk test without rest - Not met Target Visit 26 Progress Not Met PT Goal 2 Goal / Goal Update Continue Target Visit 20
--- NOTE | 2024-05-25 15:18 | PTOPPROG ---
Assessment and note entered by Edie Zaragoza, PT Evaluation Information Assessment Status Progress ICD-10 Condition Codes (PT) Repeated falls R29.6,Difficulty Walking R26.2, Abnormalities of gait and mobility R26.9,Weakness R53.1 Other ICD-10 Condition Codes ( Z91.82, G81.92, S06.5X9A PT) Onset 03/17/24 Subjective Information Mike reports feeling like he's been getting worse since his last progress visit approx. one month ago. He had a fall at home 2-3 weeks ago and is unable to walk a 100ft lap around the gym or get in his truck. He still uses his walker at home but still uses his cane in the community. Despite his recent fall and regression in functional status he is still hesitant to use his walker out of the house despite previous recommendations during therapy. Assessment PT Clinical Summary Mr. Valencia has attended 18 total skilled physical therapy visits addressing functional mobility and strength training due to frequent falls and difficulty walking. Since his last progress visit one month ago his strength and functional mobility have regressed. He demonstrates fatigue during ambulation that occurs earlier than in previous visits along with gait deviations that progress with increased fatigue. He would like to continue physical therapy despite this regression to keep trying to improve his strength and endurance. Educated pt on using his walker at all times both in and out of the house to reduce fall risk. Plan of Care Interventions Electrical Stimulation,Gait Training,Hot Pack/Cold Pack,Manual Therapy,Neuro Re-education,Patient/ Caregiver Education,Therapeutic Activities, Therapeutic Exercise,Self-Care/Home Management PT Services Indicated Yes Treatment Frequency and 2x/week for 8 additional visits Duration These treatments will address the objective and functional deficits as defined above. The patient will be advanced safely and appropriately in order for the patient to progress towards his/her prior level of function. Additional exercises will be introduced and as well as a comprehensive home exercise program upon discharge, if needed, ?to ensure carryover of functional gains achieved in the clinic. This treatment plan has been reviewed and agreement upon by the patient.
== END 2024-06-21 23:59 | disposition home or self-care (01) ==
LOC: CHSPT 10:51
PROVIDERS: Visit Provider Family Medicine
DX: S06.5X9A Traumatic subdural hemorrhage with loss of consciousness of unspecified duration, initial encounter (principal); G81.91 Hemiplegia, unspecified affecting right dominant side; Z91.81 History of falling
CPT/HCPCS: 97110; 97112; 97116; 97161; 97530; 97750

== ENCOUNTER 2024-06-24 11:14 | Outpatient (RCR) | payer MEDICARE, OTHER, SELFPAY ==
--- NOTE | 2024-06-24 12:50 | OPREHPOC ---
Outpatient Therapy Plan of Care This is a Multidisciplinary Plan of Care that may contain components documented by all disciplines (PT, OT, and ST.) PT Problem 1 PT Problem #1 Knowledge Deficit PT Goal 1 Goal / Goal Update 1. independent and compliant with HEP Target Visit 6 Progress Not Met PT Goal 2 Goal / Goal Update Continue to educate to improve adherence to HEP. Target Visit 20 Progress Met PT Problem 2 PT Problem #2 Impaired Strength PT Goal 1 Goal / Goal Update 1. patient to achieve 3/5 or better bilat hip abd strength Target Visit 12 Progress Met PT Goal 2 Goal / Goal Update Continue Target Visit 20 PT Problem 3 PT Problem #3 Impaired Balance PT Goal 1 Goal / Goal Update 1. TUG to be completed in under 20 seconds - Not met 2. 5x sit to stand to be completed in under 20 seconds - Not met 3. tinetti to display moderate fall risk or less. - Not met Target Visit 26 Progress Not Met PT Goal 2 Goal / Goal Update Continue Target Visit 20 PT Problem 4 PT Problem #4 Impaired Functional Mobility PT Goal 1 Goal / Goal Update 1. patient to transition safely back to cane for ambulation -Not met 2. no falls in the last 4 weeks of PT -Previously met, but had a fall 2 weeks ago and most recently 1 day ago 3. patient to complete a 6 minute walk test without rest - Not met Target Visit 26 Progress Not Met PT Goal 2 Goal / Goal Update Continue Target Visit 20
--- NOTE | 2024-06-24 12:50 | PTOPDC ---
Assessment and note entered by Edie Zaragoza, PT Evaluation Information Assessment Status Discharge ICD-10 Condition Codes (PT) Repeated falls R29.6,Difficulty Walking R26.2, Abnormalities of gait and mobility R26.9,Weakness R53.1 Other ICD-10 Condition Codes ( Z91.82, G81.92, S06.5X9A PT) Onset 03/17/24 Subjective Information Mike continues to feel like his strength and functional mobility continues to worsen despite doing his exercises at home. He feels like his legs turn to jello and like he can't feel them when he walks more than 50 feet and that his left foot catches all the time and he feels like he'll trip over it. 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 He also still isn't able to get into his trunk and has had to alter the way he gets into his 's car. Reported Pain Level Pain Score 0: Self Report Pain Score 0: Self Report Assessment PT Clinical Summary Mr. Valencia has attended 26 total skilled PT session for generalized weakness, imbalance and frequent falls. Since beginning phyiscal therapy Mr. Valencia' s lower extremity strength and functional mobility have steadily declined. He presents today with increased hip flexion and ankle dorsiflexion weakness and can only tolerate ambulation for 100ft before requiring a rest break due to weakness and fatigue. His time to complete the TUG test has also increased, indicated his risk of falls continues to increase and his most recent fall occurred yesterday. Following discussion with pt and his family it was determined pt will be discharged from skilled PT this date and will follow up with his primary care physician and/or neurologist for further testing. Plan of Care PT Services Indicated No
== END 2024-06-24 13:31 | disposition home or self-care (01) ==
LOC: CHSPT 11:14
PROVIDERS: Visit Provider Family Medicine
DX: S06.5X9A Traumatic subdural hemorrhage with loss of consciousness of unspecified duration, initial encounter (principal); G81.91 Hemiplegia, unspecified affecting right dominant side; Z91.81 History of falling
CPT/HCPCS: 97110; 97530; 97750

== ENCOUNTER 2024-11-03 20:24 | Observation (INO) | payer MEDICARE, OTHER, SELFPAY ==
--- OUTSIDE RECORDS SUMMARY | 2008-08-02 10:45 | XMS_ITS | Continuity of Care Document ---
Author Organization [facility] [place] [facility] [place] Address [address] [place] [address] Phone Care Team Providers Care Document Management Consultant Name Role Phone Johnny Aleman Unavailable Unavailable Procedures Procedure Date Office/outpatient Visit, Est Eye Exam Established Pt Eye Exam Established Pt Ophthalmoscopy, Subsequent Office Consultation Ophthalmoscopy Eye Exam, New Patient Advance Directives Directive Yes / No Effective Date File Name No Information Encounters Encounter Description Practice Location Reason(s) For Visit Diagnoses Date Provider Providers Copied on Encounter Office/outpati ent Visit, Est [facility], [address] [place] [address] [address], [place], [place], [id number], tel:[phone] [facility] No Information Jul-1 0-200 9 Ash Turner. [address] [facility] [address] , [address], [place], [place], [facility], [place]. tel:[phone] [facility], [address] [place] [address] [address], [place], [place], [id number], [place] tel:[phone] [facility] No Information Harpal-0 8-200 9 Ash Turner. [address] [facility] [address] , [address], [place], [address], [place]. tel:[phone] [facility], [address] [place] [address] [address], [place], [place], [id number], tel:[phone] [facility] No Information Sep-0 8-200 8 Wai Ferrara. [address] [place], [address], [place]. tel:[phone] Office Consultation [facility], [address] [place] [address] [address], [place], [place], [id number], tel:[phone] [facility] No Information Aug-0 7-200 8 Wai Ferrara. [address] [place], [place], [facility], [place]. tel:[phone] Referring Provider: Verona Koenig, [address], [place], [place], [facility]. tel:[phone] [facility], [id number] [place] [address] [address], [place], [place], [id number], tel:[phone] [facility] No Information Sep-0 5-200 8 Afsaneh Rhoades. [facility] [facility] , [address], [place], [address], [place]. tel:[phone] Family History Family Member Type Diagnosis Age At Onset No Information Payers Payer name Insurance type Covered green party ID Sadie watsonashwin(s) [facility] Commercial CI [id number] Social History Type Description Quantity Date Captured Comments Sex Male Smoking Status No Information Chief Complaint And Reason For Visit No Information Reason For Referral Reason For Referral No Information History Of Present Illness Encounter Date Complaint History Of Prese nt Illness No Information Functional Status Date Functional Assessmen t No Information Instructions Date Instruction Additional Infor mation No Information Assessments Type Assessment Date No Information Patient Care Teams Name Effective Dates (start - stop) Status Members No Information
[2024-11-03] VITALS (23 sets, daily range): BP systolic 122–166; BP diastolic 64–102; PULSE 69–88; RESP 13–21; TEMP 36.6; O2SAT 96–99; BMI 25.4
--- NOTE | ~2024-11-03 | CT_ITS ---
EXAMINATION: CT brain wo con DATE: 11/03/2024 21:02 INDICATION: Weakness TECHNIQUE: Computed tomography (CT) of the head was performed without intravenous contrast. The dose-length product was 605.33 mGy-cm. COMPARISON: CT dated 08/27/2021 FINDINGS: There is a left parietal infarction, likely chronic. No ventriculomegaly or midline shift. There is a left frontal lobe infarction also likely chronic. No ventriculomegaly or midline shift. Basilar cisterns are patent. There is intracranial atherosclerosis. Generalized atrophy. There are scattered mild periventricular and subcortical white matter changes, most likely related to small vessel ischemic disease (microangiopathy). Paranasal sinuses and mastoids are pneumatized. No depressed skull fractures. IMPRESSION: 1. No acute intracranial abnormality. 2: Chronic left frontal lobe and parietal infarctions. Reviewed, dictated and finalized at location O.
--- NOTE | ~2024-11-03 | XR_ITS ---
EXAMINATION: XR chest 1V portable 11/03/2024 21:02 INDICATION: Weakness PROCEDURE: AP portable chest COMPARISON: 02/02/2008 FINDINGS: The lungs are clear. The cardiomediastinal silhouette is within normal limits. There are no pleural effusions. There is no pneumothorax suspected. IMPRESSION: 1: NO ACUTE CARDIOPULMONARY DISEASE. Reviewed, dictated and finalized at location O.
--- NOTE | 2024-11-03 20:42 | ECG_ITS ---
Test Date: 2024-11-03 21:34:16 Measurements Intervals [place] Rate: 75 P: 0 UT: 0 QRS: -32 QRSD: 131 T: -29 QT: 437 QTc: 488 Interpretive Statements ATRIAL FIBRILLATION LEFT AXIS DEVIATION [QRS AXIS < -30] INTRAVENTRICULAR CONDUCTION DELAY [130+ ms QRS DURATION] No previous ECG available for comparison Electronically Signed On 11-04-2024 15:23:17 CDT by Hermelindo Mar M.D.
--- OUTSIDE RECORDS SUMMARY | 2024-11-03 21:14 | XMS_ITS | Clinical Summary ---
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
--- OUTSIDE RECORDS SUMMARY | 2024-11-03 21:14 | XMS_ITS | Encounter Summary ---
Author Organization [facility] Address [address] [place] [address] Phone Care Team Providers Care Mining Detail Draftsperson Name Role Phone Nehemiah Jin MD Primary Care Provider [phone] Reason for Referral * Consultation (Routine) - Authorized Specialty Diagnoses / Procedures Referred By Uziel t Referred To Contact Neurology Diagnoses Neuropathy Wilfredo Horne Jr., MD [address] [place] [address] Phone: tel: fax: [facility]cle [address] [place] [address] [place] [address] Phone: tel: fax: Referral ID Status Reason Start Date Expiration Date Visits Requested Visits Authorized [id number] Authorized Specialty Services Required 11/02/2024 12/02/2025 1 1 Question Answer Please select the performing region: [facility] (All Locations) [[id number]] # of visits: 1 Comments Neuromuscle referral Encounter Details Date Type Department Care Team (Late st Contact Info) Description 11/02/2024 Telephone [facility] Medicine General Neurology [address] [facility] [address] [place] [address] Wilfredo Horne Jr., MD [address] [place] [address] Social History Tobacco Use Types Packs/Day Years Used Date Smoking Tobacco: Former Cigarettes 0.8 9.5 1 961 - 08/16/1969 Smokeless Tobacco: Never Alcohol Use Standard Drinks/Week Comments Not Currently [...] How often do you attend chur or anglican services? More than 4 times per year 08/30/2021 Do you belong to any clubs o r organizations such as confucianism groups, unions, fraternal or athletic groups, or [...] place to sleep or slept in a senior living (including now)? No 08/30/2021 Sex and Gender Information Value Date Recorded Sex Assigned at Not on file Legal Sex Male 1:58 AM COOK HELPER PRESERVES Gender Identity Male 04/10/2020 10:03 AM COOK HELPER PRESERVES Sexual Orientation Not on file documented as of this encounter Miscellaneous Notes * Telephone Encounter - Wilfredo Horne Jr., MD - 11/02/2024 8:31 AM CDT I called Mike Valencia to discuss the EMG results. A referral was placed to Neuromuscle for evaluation. documented in this encounter Plan of Treatment Scheduled Referrals Name Type Priority Associated Diagnoses Order Schedule Ambulatory referral to Neurology Outpatient Referral Routine Neuropathy Expected: 01/02/2025 (Approximate), Expires: 11/02/2025 documented as of this encounter Goals Goal Patient Goal Type Associated Problems Recent Progress Patient-Stated? Author CCM Chronic Pain Care Plan Chronic Care Management No change(03/21 8:32 AM COOK HELPER PRESERVES) No Shabana Oconnor, RN Note: Problem: Chronic Pain Goals: 1. Minimize further functional decline 2. Maximize quality of life 3. Control pain Strategies: - Activity/exercise program recommendation - Conservative stepwise pain medicine strategy with multi-disciplinary approach - Recommend healthy lifestyle strategies and compensatory methods as needed documented as of this encounter Visit Diagnoses Diagnosis Neuropathy- Primary Mononeuritis of unspecified site documented in this encounter Care Teams Mining Detail Draftsperson Relationship Specialty Start Date End Date Nehemiah Jin MD PCP - General 11/25/11 documented as of this encounter
[2024-11-03 21:15] LABS: Hematocrit 42.2 % (37.0-46.0); Hemoglobin 13.9 g/dL (12.4-15.3); Immature Granulocyte Percent A 1.2 % (0.0-0.0); Lymphocytes Absolute Auto 1.04 K/mm3 (1.10-4.50); Mean Corpuscular HGB Conc 32.9 g/dL (32-36); Mean Corpuscular Hemoglobin 32.0 pg (27.0-31.0); Mean Corpuscular Volume 97.0 fL (78.0-102.0); Nucleated Red Blood Cells Absolute Auto 0.00 K/mm3 (0.00-0.00); Nucleated Red Blood Cells Perc 0.0 % (0-0.0); Platelet Count Result 251 K/mm3 (150-420); Red Blood Count 4.35 M/mm3 (4.70-6.10); White Blood Count 10.0 K/mm3 (4.8-10.8)
[2024-11-03] MEDS: SODIUM CHLORIDE 0.9% IV 1,000 ML 999 ML IV CONT (21:23)
[2024-11-03 21:26] LABS: Alanine Aminotransferase 176 U/L (6-50); Albumin Level 3.8 g/dL (3.5-5.1); Alkaline Phosphatase 98 U/L (38-126); Anion Gap 7 mmol/L (4-12); Aspartate Amino Transferase 164 U/L (17-59); Bilirubin,Total 1.2 mg/dL (0.2-1.3); Blood Urea Nitrogen 14 mg/dL (9-20); Calcium 9.4 mg/dL (8.4-10.2); Carbon Dioxide 30 mmol/L (22-30); Chloride 101 mmol/L (98-107); Estimated CRCL calculation 68 ml/min; Estimated Glomerular Filt Rate > 60; Glucose 102 mg/dL (65-110); Osmolality Calculated 286 mOsm/kg (285-295); Potassium 3.8 mmol/L (3.4-5.0); Sodium 138 mmol/L (137-145); Total Protein 6.1 g/dL (6.3-8.2)
[2024-11-03 21:36] LABS: NT Pro B Type Natriuretic Pept 1900 pg/mL (19.9-100)
[2024-11-03 21:37] LABS: Partial Thromboplastin Time 58.3 Sec (23.9-30.70); Prothrombin Time 59.6 Seconds (9.50-12.1)
[2024-11-03 21:50] LABS: Influenza A QL RT-PCR Negative (Negative); Influenza B QL RT-PCR Negative (Negative); RSV RNA, RT-PCR Negative (Negative); SARS-CoV-2 RNA PCR Negative (Negative)
[2024-11-03 21:52] LABS: INR 6.5
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
[2024-11-03] MEDS: FUROSEMIDE INJ 40 MG/4 ML VIAL IV PUSH (22:37)
[2024-11-03] MEDS: PHYTONADIONE INJ 10 MG/ML AMP IM (22:40)
--- NOTE | 2024-11-03 23:36 | PC.NURSE ---
Call placed to floor, pt will go to Rm 206. Report given to MARIVEL Romero
[2024-11-03 23:46] LABS: Add Urine Microscopic? YES; Appearance Urine Clear (Clear); Glucose Urine UA Negative (Negative); Leukocyte Esterase Ur 1+ LEU/UL (Negative); Nitrate Urine Negative (Negative); Specific Grav Ur 1.010 (1.010-1.020)
[2024-11-04] VITALS: BP 152/75; PULSE 74; RESP 15; RESP 18; TEMP 36.4; O2SAT 97; O2SAT 98
--- NOTE | 2024-11-04 00:13 | ADMGEN ---
This patient, Mike Valencia, was admitted to 2nd Floor Room 206-1. Patient/family oriented to hospital policies and general routines including ID bracelet, bed and alarms, visiting hours, pain management, procedures, bathroom and other care routines, personal items, smoking policy, room service/diet, and visiting hours. Information on how to activate the Rapid Response Team has been discussed. Patient/Family are encouraged to report perceived risks to care and to ask questions if they do not understand what they are told or what they should do.
--- NOTE | 2024-11-04 00:35 | PC.NURSE ---
Spoke with , Tanika, states she will bring in code status paperwork tomorrow. Tanika also states that patient had seen commercial real estate sales manager yesterday, Dr. Kay (11/02/24), regarding rash to groin, states a culture was taken, awaiting results. Rash had recently been treated with Nystatin cream, and TMC cream.
[2024-11-04 00:48] VITALS: PULSE 74; RESP 18; O2SAT 98
[2024-11-04 03:25] VITALS: PULSE 74
[2024-11-04 05:43] LABS: Hematocrit 40.9 % (37.0-46.0); Hemoglobin 13.5 g/dL (12.4-15.3); Immature Granulocyte Percent A 0.9 % (0.0-0.0); Lymphocytes Absolute Auto 0.97 K/mm3 (1.10-4.50); Mean Corpuscular HGB Conc 33.0 g/dL (32-36); Mean Corpuscular Hemoglobin 32.1 pg (27.0-31.0); Mean Corpuscular Volume 97.4 fL (78.0-102.0); Nucleated Red Blood Cells Absolute Auto 0.00 K/mm3 (0.00-0.00); Nucleated Red Blood Cells Perc 0.0 % (0-0.0); Platelet Count Result 218 K/mm3 (150-420); Red Blood Count 4.20 M/mm3 (4.70-6.10); White Blood Count 9.8 K/mm3 (4.8-10.8)
[2024-11-04 05:57] LABS: Alanine Aminotransferase 161 U/L (6-50); Albumin Level 3.6 g/dL (3.5-5.1); Alkaline Phosphatase 96 U/L (38-126); Anion Gap 8 mmol/L (4-12); Aspartate Amino Transferase 155 U/L (17-59); Bilirubin,Total 1.1 mg/dL (0.2-1.3); Blood Urea Nitrogen 12 mg/dL (9-20); Calcium 9.2 mg/dL (8.4-10.2); Carbon Dioxide 32 mmol/L (22-30); Chloride 100 mmol/L (98-107); Estimated CRCL calculation 69 ml/min; Estimated Glomerular Filt Rate > 60; Glucose 93 mg/dL (65-110); Osmolality Calculated 289 mOsm/kg (285-295); Potassium 3.3 mmol/L (3.4-5.0); Sodium 140 mmol/L (137-145); Total Protein 5.8 g/dL (6.3-8.2)
[2024-11-04 06:05] LABS: Prothrombin Time 54.4 Seconds (9.50-12.1)
[2024-11-04 06:06] LABS: NT Pro B Type Natriuretic Pept 2090 pg/mL (19.9-100)
[2024-11-04 06:09] LABS: INR 5.8
--- OUTSIDE RECORDS SUMMARY | 2024-11-04 07:22 | XMS_ITS | Clinical Summary ---
Author Organization [facility] D Address [address] [place] [address] Care Team Providers Care [employer] Repairer Name Role Phone Nehemiah Jin MD Primary Care Provider [phone] Allergies No known active allergies Medications metoprolol [...] (05/16/2020): Added automatically from request for surgery [id number] Spondylolisthesis, lumbar region 05/16/2020 Overview (05/18/2020): Added automatically from request for surgery [id number] Spondylolisthesis of lumbar region 01/12/2020 Permanent atrial [...] Type Department Care Team Description 11/02/2024 Telephone [facility] Medicine General Neurology [address] 6th [address] [place] [address] Wilfredo Horne Jr., MD 10/19/2024 10:20 AM CDT Procedure visit [facility]rological [facility] [address] [facility] 6th [place] [address] [place] [address] Foot drop, left foot; Numbness and tingling of both legs 08/24/2024 1:30 PM CDT Office Visit [facility] Medicine General Neurology [address] [place] [address] Wilfredo Horne Jr., MD Foot drop, left foot (Primary Dx); Spondylolisthesis of lumbar region; Status post laminectomy; Cervical disc disorder with myelopathy of mid-cervical region; Subdural hematoma (HCC); Cervical disc disorder with radiculopathy of mid-cervical region; Stroke with cerebral ischemia (HCC); Numbness and tingling of both legs 08/09/2024 11:45 AM CDT Telemedicine [facility] [address] [place] [id number] Jairo Kruse PA Subdural hematoma (HCC) (Primary [...] How often do you attend chur or zoroastrianism services? More than 4 times per year 08/30/2021 Do you belong to any clubs o r organizations such as restorationism groups, unions, fraternal or athletic groups, or [...] place to sleep or slept in a [place] [facility] [place] facility (including now)? 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 MEDICARE [facility] Advance Directives For more information, please contact: [phone] Documents on File Type Date Recorded Patient Manager Primary Expl anation ADVANCE DIRECTIVE 05/25/2020 8:41 AM Power of County Historian-Medical * Full Code (Latest Code Status on File) Date Activated Date Inactivated Comments 08/29/2021 8:58 PM 08/31/2021 7:31 PM * Full Code Date Activated Date Inactivated Comments 08/27/2021 5:54 PM 08/29/2021 5:30 PM * Full Code Date Activated Date Inactivated Comments 08/27/2021 2:33 PM 08/27/2021 5:54 PM * Full Code Date Activated Date Inactivated Comments 05/28/2020 4:29 PM 05/30/2020 5:11 PM Care Teams [employer] Repairer Relationship Specialty Start Date End Date Nehemiah Jin MD PCP - General 11/25/11
--- OUTSIDE RECORDS SUMMARY | 2024-11-04 07:22 | XMS_ITS | Clinical Summary ---
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
[2024-11-04 08:00] VITALS: BP 143/65; PULSE 72; PULSE 88; RESP 15; TEMP 35.6; O2SAT 98
--- NOTE | 2024-11-04 10:42 | P.SS_ITS ---
Same Day Admit/Disch: HPI History of Present Illness Chief complaint: Weakness/supratherapeutic INR Narrative: Mike Valencia is a 79 year old male presented to the emergency department with complaints worsening weakness and dysphagia and weight loss 20 lb last 6 months due to loss appetite and feeling as though food is getting stuck. Patient currently at home reports he can transfer to wheelchair and is mobile with wheelchair with his assistance. Patient did report past medical history of IBS, CVA, afib, and previous spinal surgery for decompression of spinal cord. Patient denied any chest pain, shortness a breath, nausea, vomiting, loss of bowel urination. Did report he has had progressively worsening numbness to his bilateral lower extremities with recent nerve conduction study test showing neuropathy. In the ED: Patient's labs fairly unremarkable however patient does take Coumadin at home for his atrial fibrillation and was found to have a supratherapeutic INR of 6.8. Vitals were stable and there were no evidence of acute bleeding. Patient received vitamin K 10 mg and was admitted up to the medical unit for observation overnight repeat labs in the a.m. there was some concern of patient returning home due to his frequent falls. [facility] Past Medical History Medical History A-fib Onychomycosis Irritable bowel syndrome with diarrhea Orbital fracture Forehead laceration Expressive aphasia CVA (cerebral vascular accident) Risk for falls Melanoma of face 2020 Reactive airway disease History of hearing problem Surgical History Surgical History Status post lumbar spine surgery for decompression of spinal cord History of cholecystectomy 2003 Family History Family History Mother Hypertension Family history of cardiovascular disease Family history of coronary artery disease Father Hypertension, Onset Age: 67 Family history of cardiovascular disease, Onset Age: 67 Acute myocardial infarction, Onset Age: 67 Family history of coronary artery disease, Onset Age: 67 Other Asthma Family history of allergic disorder Family history of elevated blood lipids Social History Social History Smoking status: Never smoker Smoking end date: 02/23/91 Alcohol intake: never Substance use: never Substance use type: does not use Do You Feel Safe in your Home?: Yes Lack of Transportation: No Lack of Food: Never True Current Housing: I Have Housing Concerned About Future Housing: No Difficulty Paying Gas/Electric Bills: No Difficulty Paying for Meds: No Currently Unemployed: No Education: Trade/Vocational Certificate Difficulty w/ Childcare or Family Care: No Spiritual care concerns: No Same Day Admit/Disch: Med Pre-admit Medications Home Medications ?Medication ?Instructions ?Recorded ?Confirmed ?Type albuterol sulfate 90 mcg/actuation 2 puff inhalation Q 4H PRN 06/01/23 11/03/24 Rx aerosol inhaler (Ventolin HFA) shortness of breath or wheezing #8.5 grams fluticasone 250 mcg-salmeterol 50 1 inh inhalation BID #60 ea 05/18/24 11/03/24 Rx mcg/dose blistr powdr for inhalation (Advair Diskus) atorvastatin 80 mg tablet See Rx Instructions .Route 0 06/14/24 11/03/24 Rx .COMPLEX #90 tabs warfarin 5 mg tablet 5 mg PO DAILY #90 tabs 07/2511/03/24 Rx Held on 11/04/24. Instructions: Resume on 11/09/24. Hold until repeat INR completed fluoxetine 20 mg capsule (Prozac) 20 mg PO DAILY #90 c aps 09/08/24 11/03/24 Rx metoprolol tartrate 50 mg tablet See Rx Instructions . Route 09/27/24 11/03/24 Rx .COMPLEX #90 tabs bupropion HCl 300 mg 24 hr tablet, 300 mg PO QAM #90 t abs 10/20/24 11/03/24 Rx extended release (Wellbutrin XL) nystatin 100,000 unit/gram topical 1 applic topical BI D #30 grams 10/25/24 11/03/24 Rx cream metformin 500 mg tablet,extended See Rx Instructions . Route 10/28/24 11/03/24 Rx release 24 hr .COMPLEX #90 tabs Review of Systems Review of Systems All systems reviewed & are unremarkable except as noted in HPI and below Exam Const: General: comfortable and no acute distress HENMT: Face/Nose/Sinus: Normal nares present Mouth: Yes moist mucous membranes Eyes: General: appearance normal, both eyes and all related structures Sclera: sclerae normal Pupils: Equal, round and reactive pupils present Neck: Neck: supple and no JVD Resp: Effort & Inspection: normal respiratory effort Auscultation: clear to auscultation bilaterally Cardio: Rate: regular rate Rhythm: abnormal rhythm regularly irregular GI: GI Palp: Yes Soft to palpation Auscultation: normal bowel sounds : General: Yes bladder normal to palpation Skin: General skin exam: normal color Wounds: no wounds Neuro: General: patient oriented x3, gait normal and moves all extremities Cognition (Neuro): normal cognition Speech: normal speech Gait exam (Neuro): Assisted gait required and Assistive device used Sensory Exam: normal sensation DS: Data Data Completed and Pending Labs on day of discharge: Labs from last 24 hours 11/04/24 11/03/24 11/03/24 05:38 23:20 21:10 WBC 9.8 10.0 RBC 4.20 L 4.35 L Hgb 13.5 13.9 Hct 40.9 42.2 MCV 97.4 97.0 MCH 32.1 H 32.0 H MCHC 33.0 32.9 RDW 13.5 13.5 Plt Count 218 251 MPV 10.0 9.9 Immature Gran % (Auto) 0.9 H 1.2 H Neut % (Auto) 77.8 H 77.4 H Lymph % (Auto) 9.9 L 10.4 L [place] % (Auto) 10.1 9.1 Eos % (Auto) 0.8 L 1.2 Baso % (Auto) 0.5 0.7 Lymph # (Auto) 0.97 L 1.04 L [place] # (Auto) 0.99 H 0.91 H Eos # (Auto) 0.08 0.12 Baso # (Auto) 0.05 0.07 Abs Immat Gran (auto) 0.09 H 0.12 H Absolute Neuts (auto) 7.64 H 7.72 H Absolute Nucleated RBC 0.00 0.00 Nucleated RBC % 0.0 0.0 PT 54.4 H 59.6 H INR 5.8 H* 6.5 H* APTT 58.3 H Sodium 140 138 Potassium 3.3 L 3.8 Chloride 100 101 Carbon Dioxide 32 H 30 Anion Gap 8 7 BUN 12 14 D Creatinine 0.76 0.78 Estim Creat Clear Calc 69 68 Estimated GFR > 60 > 60 Glucose 93 102 Calculated Osmolality 289 286 Lactic Acid 1.5 Calcium 9.2 9.4 Total Bilirubin 1.1 1.2 AST 155 H 164 H ALT 161 H 176 H Alkaline Phosphatase 96 98 NT-Pro-B Natriuret Pep 2090 H 1900 H Total Protein 5.8 L 6.1 L Albumin 3.6 3.8 Urine Color Light yellow Urine Appearance Clear Urine pH 5.5 Ur Specific [place] 1.010 Urine Protein Negative Urine Glucose (UA) Negative Urine Ketones Negative Ur Blood (Man) Trace-intact H Urine Nitrate Negative Urine Bilirubin Negative Urine Urobilinogen 0.2 Leukocyte Esterase Rfl 1+ H Urine RBC 0-2 Urine WBC 0-3 Ur Squamous Epith Cells None seen Urine Bacteria None seen Influenza A (RT-PCR) Negative Influenza B (RT-PCR) Negative RSV (RT-PCR) Negative SARS-CoV-2 RNA (RT-PCR) Negative DS: Summary Hospital Course Reason for hospitalization: Weakness/supratherapeutic INR Hospital Course: Admission: Mike Valencia is a 79 year old male presented to the emergency department with complaints worsening weakness and dysphagia and weight loss 20 lb last 6 months due to loss appetite and feeling as though food is getting stuck. Patient currently at home reports he can transfer to wheelchair and is mobile with wheelchair with his assistance. Patient did report past medical history of IBS, CVA, afib, and previous spinal surgery for decompression of spinal cord. Patient denied any chest pain, shortness a breath, nausea, vomiting, loss of bowel urination. Did report he has had progressively worsening numbness to his bilateral lower extremities with recent nerve conduction study test showing neuropathy. In the ED: Patient's labs fairly unremarkable however patient does take Coumadin at home for his atrial fibrillation and was found to have a supratherapeutic INR of 6.8. Vitals were stable and there were no evidence of acute bleeding. Patient received vitamin K 10 mg and was admitted up to the medical unit for observation overnight repeat labs in the a.m. there was some concern of patient returning home due to his frequent falls. Patient also received 1 L of mL in the emergency department as well as 40 IV push of Lasix due to history of CHF and elevated BNP CXR with no acute cardiopulmonary findings Hospital Course: Patient was seen and evaluated following day with no complaints and INR had improved to 5.8. Patient still reported he has some difficulty eating feels as though food is getting stuck however reports he does not cough or feels that he cannot clear it if this time I recommended him have a referral to GI for further evaluation of potential stricture need for direct visualization currently on room air with no respiratory distress no difficulty breathing. Patient's is at bedside both reported he has weakness immobility have decreased over the last 6-8 months however he has been seen by Neurosurgery due to chronic back issues including spondylosis they are to follow-up with neuromuscular for further evaluation. Patient was evaluated by PT/OT who recommended either swing bed versus home with home health for continued physical and occupational therapy. I also discussed with patient and his regarding the continued risks versus benefits of him continuing on Coumadin due to frequent falls and the bleeding risks they requested this time to continue with the Coumadin however they will speak with his primary care physician and likely transition to just 81 mg aspirin. I did attempt to the set patient up with oral Eliquis however his deductible was too to hyper them to afford. Patient at time of discharge were instructed to hold their Coumadin and were provided a follow-up INR lab draw for outpatient prior to resuming his Coumadin I also recommended looking into a home INR monitoring device. Patient was discharged home with spouse will need follow-up with primary care physician. Patient son does acknowledge it agreed with discharge plan. Status at Discharge Functional status at discharge: wheelchair bound Overall status at discharge: other Time Spent with Patient Time attestation: Total time spent providing and/or coordinating discharge services: Time spent: Greater than 30 minutes DS: Admitting Diagnosis Discharge Date 11/04/2024 Admitting Diagnosis Weakness/supratherapeutic INR DS: Discharge Diagnosis Discharge Diagnosis (1) Supratherapeutic INR: Code(s): R79.1 - Abnormal coagulation profile Status: Acute (2) Risk for falls: Code(s): Z91.81 - History of falling Status: Acute (3) Degenerative arthritis of cervical spine: Code(s): M47.812 - Spondylosis without myelopathy or radiculopathy, cervical region Status: Acute (4) Neuropathy: Code(s): G62.9 - Polyneuropathy, unspecified Status: Acute Discharge Plan Discharge Attending physician on discharge: Ivan Mcclain Consulting providers: Cyndi Hess Discharging Clinician: Cyndi Hess Anticipated Discharge Date/Time: 11/04/24 10:43 Patient Disposition: Home with Home Health Service Activity: as tolerated Diet: diabetic Discharge Instructions: Per Care Coordination: [facility] will follow you at discharge for detention, physical therapy, occupational therapy, and speech therapy. They will give you a call to schedule an appointment date and time. Their phone number is [phone]. 1). Weakness * Home health services with PT/OT/ST * Encourage protein shakes with each meal 2). Coumadin toxicity/INR supratherapeutic * continue to hold your Coumadin until repeat INR next week a order is attached * I encourage you review with your primary regarding risks vs benefits of continued use due to age and risk of falls would recommend switching to just a aspirin 81 daily this can be discussed with your primary physician * Recommend INR monitor for home 3). difficulty swallowing * Home health with ST * Will need GI referral possible EGD How can you care for yourself at home? ? Keep track of any new symptoms or changes in your symptoms. ? Rest until you feel better. ? Be safe with medicines. Take your medicines exactly as prescribed. Call your doctor if you think you are having a problem with your medicine. ? Do not drive after taking a prescription pain medicine. ? Ensure to follow-up with primary care physician as indicated and provide updated medication list provided to you at discharge. When should you call for help? Call 911 anytime you think you may need emergency care. For example, call if: ? You passed out (lost consciousness). Call your doctor now or seek immediate medical care if: ? You have new symptoms like fever, difficulty breathing, Chest pain, vomiting, or rash. ? You have new or different pain. ? You are confused and are having trouble thinking clearly. ? Your symptoms are getting worse. Watch closely for changes in your health, and be sure to contact your doctor if: ? You do not get better as expected. Patient Instructions: Antibiotic Form, Warfarin (By mouth), Soft Diet (DC), Fall Prevention for Older Adults (DC), Elevated INR (DC), Dysphagia (GEN) Patient Language: Maltese Stand Alone Forms: General Discharge Information Follow-up/Referrals: Nehemiah Jin MD [Primary Care Provider, [facility]] - 1 week Referral Note: Call to make follow up appointment. Discharge Medications: Continued fluoxetine [Prozac] 20 mg capsule 20 mg PO DAILY Qty: 90 1RF albuterol sulfate [Ventolin HFA] 90 mcg/actuation HFA aerosol inhaler 2 puff INHALATION Q4H PRN (Reason: shortness of breath or wheezing) Qty: 8.5 2RF fluticasone propion-salmeterol [Advair Diskus] 250-50 mcg/dose blister with device 1 inh inhalation BID Qty: 60 1RF atorvastatin 80 mg tablet See Rx Instructions .ROUTE .COMPLEX Qty: 90 1RF Dose Instruction: Take 1 tablet by mouth once daily Rx Instructions: Take 1 tablet by mouth once daily metoprolol tartrate 50 mg tablet See Rx Instructions .ROUTE .COMPLEX Qty: 90 1RF Dose Instruction: Take 1/2 (one-half) tablet by mouth twice daily Rx Instructions: Take 1/2 (one-half) tablet by mouth twice daily bupropion HCl [Wellbutrin XL] 300 mg tablet extended release 24 hr 300 mg PO QAM Qty: 90 1RF nystatin 100,000 unit/gram cream 1 applic topical BID Qty: 30 2RF metformin 500 mg tablet extended release 24 hr See Rx Instructions .ROUTE .COMPLEX Qty: 90 1RF Dose Instruction: Take 1 tablet by mouth once daily Rx Instructions: Take 1 tablet by mouth once daily Held warfarin 5 mg tablet 5 mg PO DAILY Qty: 90 1RF Hold Instructions: Resume on 11/09/24. Hold until repeat INR completed Other Ambulatory Orders: Prothrombin Time INR (Routine) Timeframe: 1 Week Location: Determined by Patient Ordered By: Cyndi Hess Date of admission: 11/03/24 22:38 Primary Care Provider: Nehemiah Jin Admitting Provider: Ivan Mcclain Attending physician on admission: Ivan Mcclain Condition: Guarded Prognosis Quality VTE Prophylaxis VTE prophylaxis: pharmacologic ordered -Patient's previous records reviewed on admission -ER notes reviewed in detail on admission -discussed all findings and current treatment plan with patient/Family/POA -Consultations reviewed for recommendations -Patient's disposition for safe discharge discussed with bilingual case manager Dictation performed by YONATHAN Fluency direct speech recognition software, therefore lead radiologic technologist variants and typographical errors may occur. Hospitalist MIPS Advance Care Plan I have confirmed that the patient's Advanced Care Plan is present, code status is documented, or surrogate decision maker is listed in patient medical record.: Yes Medication Reconciliation I have utilized all available resources to obtain, update and review the patients current medications (includes all prescriptions, OTC, herbals, cannabis, and nutritional supplements).: Yes The patient is not eligible for med reconciliation; the patient is in a emergent medical situation where delaying treatment would jeopardize the patients health.: No Heart Failure (Exclusion) Patient has history of Heart Transplant or Left Ventricular Assistive Device?: No IF YES, STOP HERE Heart Failure (Qualifier) Patient has current or prior documentation of LVEF less than or equal to 40%, or mod/servere depressed LVSF?: No IF NO, STOP HERE
[2024-11-04] MEDS: POTASSIUM CHLORIDE 20 MEQ PACKET (FOR LIQUID) 40 MEQ PO (11:17)
--- NOTE | 2024-11-04 12:38 | PC.NURSE ---
Soft diet instructions reviewed with patient, and patients daughter. All parties state understanding. Discussed taking small bits and sips, tucking chin to chest to swallow and eating slowly, patient and state understanding. Home Health speech will be in home to see patient on thursday.
--- NOTE | 2024-11-04 12:55 | PC.NURSE ---
Discharge instructions reviewed with patient, spouse and pt's daughter. All questions answered. Pt transported via wheelchair and assisted into private vehicle.
--- NOTE | 2024-11-08 08:34 | PC.NURSE ---
discharge call back completed, doing well, to see PMD today, HH has been in to see him and doing well, swallowing is ok, took self off prozac and feeling much better, more active and appetite is back.
== END 2024-11-04 12:55 | disposition home health service (06) ==
LOC: CHSED 22:34 → CHS2ND 11-04 06:32
PROVIDERS: Admitting Provider Internal Medicine; Emergency Provider Emergency Medicine; PCP Family Medicine; Visit Provider Internal Medicine
DX: R79.1 Abnormal coagulation profile (principal); R53.1 Weakness; I50.9 Heart failure, unspecified; I48.20 Chronic atrial fibrillation, unspecified; G62.9 Polyneuropathy, unspecified; R29.6 Repeated falls; Z91.81 History of falling; M47.812 Spondylosis without myelopathy or radiculopathy, cervical region; Z86.73 Personal history of transient ischemic attack (TIA), and cerebral infarction without residual deficits; Z20.822 Contact with and (suspected) exposure to COVID-19
CPT/HCPCS: 36415; 70450; 71045; 80053; 81001; 83605; 83880; 85025; 85610; 85730; 87086; 87637; 93005; 96361; 96372; 96374; 97161; 99285; A9270; G0378; J1938; J3430; J7030